=== PATIENT | male | born 1950 | race Two or more races ===

== ENCOUNTER 2017-06-02 08:35 | Emergency (ER) | payer MEDICAID ==
[~2017-06-02] VITALS: Ht 182.9 cm; Wt 112.9 kg
[~2017-06-02 08:35] MED LIST: TRAM-297 PO
[2017-06-02 09:09] VITALS: BP 188/114
[2017-06-02] MEDS ORDERED: KETOROLAC TROMETH 60MG/2ML VIAL IM ONE (09:45)
[2017-06-02] MEDS ORDERED: methylPREDNISolone SOD SUCC 125 MG/2 ML VL IM ONE (09:45)
== END 2017-06-02 10:36 | disposition home or self-care (01) ==
LOC: ER 08:35
DX: M10.9 Gout, unspecified (principal)
CPT/HCPCS: 73610; 96372; 99284; J1885; J2930